=== PATIENT | male | born 1995 | race African-American/Black ===

== ENCOUNTER 2022-12-16 06:38 | Emergency (ER) | payer MEDICAID ==
[2022-12-16] VITALS (8 sets, daily range): BP systolic 121–148; BP diastolic 78–103
[2022-12-16] MEDS ORDERED: HYDROCO/APAP1 TA9 PO (09:39)
[2022-12-16] MEDS ORDERED: IBUPROFEN600 MG PO (10:04)
== END 2022-12-16 10:07 | disposition home or self-care (01) ==
LOC: ED 06:38
DX: S51.812A Laceration without foreign body of left forearm, initial encounter (principal); S52.002A Unspecified fracture of upper end of left ulna, initial encounter for closed fracture; V03.10XA Pedestrian on foot injured in collision with car, pick-up truck or van in traffic accident, initial encounter